=== PATIENT | female | born 1990 | race Caucasian/White ===

== ENCOUNTER 2016-06-14 15:25 | Emergency (ER) | payer OTHER ==
[~2016-06-14] VITALS: Ht 152.4 cm; Wt 42.6 kg
[2016-06-14 15:41] VITALS: BP 106/53
--- NOTE | 2016-06-14 15:44 | NUR ---
Patient ambulated to bed 05.
--- NOTE | 2016-06-14 15:50 | NUR ---
PATIENT PRESENTS TO ED WITH BILAT INGROWN TOENAILS ON GREAT TOE. DENIES N/V/D; SKIN IS PINK/WARM/DRY; AAOX4 WITH EVEN AND STEADY GAIT; LUNGS CLEAR BL; HR EVEN AND REGULAR; PT DENIES ANY FEVER, CP, SOB, OR COUGH AT THIS TIME; PATIENT STATES PAIN OF 7/10 AT THIS TIME; VSS; PATIENT POSITIONED FOR COMFORT; HOB ELEVATED; BEDRAILS UP X2; BED DOWN. ER MD MADE AWARE OF PT STATUS.
[2016-06-14 16:15] VITALS: BP 101/57
== END 2016-06-14 16:15 | disposition home or self-care (01) ==
LOC: MED 15:25
DX: L60.0 Ingrowing nail (principal)